=== PATIENT | male | born 1960 | race Caucasian/White ===

== ENCOUNTER → 2022-03-07 11:52 | Outpatient (BNVA) | payer SELFPAY | PROVIDERS: PCP Family Medicine; Visit Provider Urology | DX: N40.1 Benign prostatic hyperplasia with lower urinary tract symptoms (principal); R39.11 Hesitancy of micturition | CPT/HCPCS: 84153 ==

== ENCOUNTER → 2022-03-11 07:41 | Outpatient (BNVA) | payer SELFPAY | PROVIDERS: PCP Family Medicine; Visit Provider Urology | DX: N40.0 Benign prostatic hyperplasia without lower urinary tract symptoms (principal); N30.20 Other chronic cystitis without hematuria; R97.20 Elevated prostate specific antigen [PSA]; R39.9 Unspecified symptoms and signs involving the genitourinary system | CPT/HCPCS: 81003 ==

== ENCOUNTER → 2022-05-16 12:29 | Outpatient (BNVA) | payer SELFPAY | PROVIDERS: PCP Family Medicine; Visit Provider Urology | DX: R97.20 Elevated prostate specific antigen [PSA] (principal); N40.0 Benign prostatic hyperplasia without lower urinary tract symptoms | CPT/HCPCS: 81003; 84153 ==

== ENCOUNTER → 2022-06-23 12:36 | Outpatient (BNVA) | payer SELFPAY | PROVIDERS: PCP Family Medicine; Visit Provider Urology | DX: N40.0 Benign prostatic hyperplasia without lower urinary tract symptoms (principal); R97.20 Elevated prostate specific antigen [PSA] | CPT/HCPCS: 81000; 81003; 84153 ==

== ENCOUNTER → 2022-06-27 12:38 | Outpatient (BNVA) | payer SELFPAY | PROVIDERS: PCP Family Medicine; Visit Provider Urology | DX: R33.9 Retention of urine, unspecified (principal); N40.0 Benign prostatic hyperplasia without lower urinary tract symptoms; N41.1 Chronic prostatitis; R97.20 Elevated prostate specific antigen [PSA]; R39.9 Unspecified symptoms and signs involving the genitourinary system | CPT/HCPCS: 81003 ==

== ENCOUNTER 2022-09-26 10:54 | Outpatient (CLI) | payer SELFPAY ==
[2022-09-26 11:57] LABS: Prostate Specific AG Urology 15.62 ng/mL (0-4)
== END 2022-09-26 10:55 | disposition home or self-care (01) ==
PROVIDERS: PCP Family Medicine; Visit Provider Urology
DX: R97.20 Elevated prostate specific antigen [PSA] (principal)
CPT/HCPCS: 36415; 81003; 84153

== ENCOUNTER → 2024-02-14 15:38 | Outpatient (BNVA) | payer OTHER, SELFPAY | PROVIDERS: PCP Family Medicine; Referring Provider Nurse Practitioner Family; Visit Provider Nurse Practitioner Family | DX: M48.061 Spinal stenosis, lumbar region without neurogenic claudication (principal); M54.50 Low back pain, unspecified; G89.29 Other chronic pain; M43.26 Fusion of spine, lumbar region; Z96.698 Presence of other orthopedic joint implants; M47.896 Other spondylosis, lumbar region | CPT/HCPCS: 72100 ==

== ENCOUNTER → 2024-10-07 11:33 | Outpatient (BNVA) | payer OTHER, SELFPAY | PROVIDERS: PCP Family Medicine; Visit Provider Family Medicine | DX: N41.1 Chronic prostatitis (principal); N17.9 Acute kidney failure, unspecified; I50.9 Heart failure, unspecified | CPT/HCPCS: 80053; 85025 ==

== ENCOUNTER 2024-10-15 08:17 | Outpatient (CLI) | payer OTHER, SELFPAY ==
--- NOTE | 2024-10-15 08:00 | USCV_ITS ---
Tutu Malin Age: 64 Gender: M : 1960 Exam Date: 10/15/2024 08:59 Ordering Phys: Dana Mai MD Technologist: NAILA Exam Location: [facility] [place] Indication: sob cp BP: 124 / 72 HR: 80 Rhythm: Sinus Technical Quality: Adequate MEASUREMENTS (Male / Female) Normal Values 2D ECHO LV Diastolic Diameter PLAX 6.6 cm 4.2 - 5.9 / 3.9 - 5.3 cm IVS Diastolic Thickness 1.4 cm 0.6 - 1.0 / 0.6 - 0.9 cm IVS Systolic Thickness 1.8 cm LVPW Diastolic Thickness 1.2 cm 0.6 - 1.0 / 0.6 - 0.9 cm LVPW Systolic Thickness 1.7 cm LVOT Diameter 2.1 cm LV Ejection Fraction 2D Teich 28.9 % LV Ejection Fraction MOD 4C 36.6 % LV Ejection Fraction MOD 2C 33.5 % LV Ejection Fraction 2C AL 35.6 % LA Diameter 4.4 cm RA Systolic Volume 4C AL 137.6 ml RA Systolic Volume 4C MOD 132.8 ml Aorta at Sinotubular Diameter 3.9 cm IVC Diameter 2.2 cm M-MODE LA Ao Ratio MM 1.2 AV Cusp Separation MM 2.3 cm DOPPLER AV Peak Velocity 101.0 cm/s LVOT Peak Velocity 65.0 cm/s AV Area Cont Eq vti 3.1 cm squared AV Area Cont Eq pk 2.2 cm squared MV Peak Velocity 120.0 cm/s MV Area PHT 3.3 cm squared Mitral E to A Ratio 1.6 TV Peak Velocity 274.5 cm/s TR Peak Velocity 278.0 cm/s TR Peak Gradient 30.9 mmHg TV Peak E Velocity 108.0 cm/s PV Peak Velocity 88.0 cm/s FINDINGS Left Ventricle Left ventricle is dilated. LV systolic function is moderate to severely reduced with EF of 30 to 35%. Moderate to severe global hypokinesis Right Ventricle Grossly normal Right Atrium Severely dilated Left Atrium Dilated Mitral Valve Structurally normal mitral valve. Moderate mitral regurgitation Aortic Valve Structurally normal aortic valve. No significant stenosis or regurgitation. Tricuspid Valve Insufficient TR jet to evaluate RVSP Pulmonic Valve Not well visualized Pericardium Normal Aorta Normal in size IVC Appears to be dilated CONCLUSIONS Left ventricle is dilated. LV systolic function is moderate to severely reduced with the EF of 30-35%. Biatrial enlargement. Moderate mitral regurgitation IVC appears to be dilated No comparison studies are available. Ravin Garcia MD (Electronically Signed) Final Date: 01 November 2024 09:23 S
== END 2024-10-15 08:18 | disposition home or self-care (01) ==
PROVIDERS: PCP Family Medicine; Visit Provider Family Medicine
DX: I50.9 Heart failure, unspecified (principal); R06.02 Shortness of breath; I51.7 Cardiomegaly; R93.1 Abnormal findings on diagnostic imaging of heart and coronary circulation; I51.89 Other ill-defined heart diseases; I34.0 Nonrheumatic mitral (valve) insufficiency
CPT/HCPCS: 93306

== ENCOUNTER → 2024-11-06 09:48 | Outpatient (BNVA) | payer OTHER, SELFPAY | PROVIDERS: PCP Family Medicine; Visit Provider Family Medicine | DX: N17.9 Acute kidney failure, unspecified (principal) | CPT/HCPCS: 81000; 82043 ==